=== PATIENT | male | born 1970 | race Caucasian/White ===

== ENCOUNTER 2017-11-22 15:51 | Inpatient (IN) | payer OTHER ==
[~2017-11-22] VITALS: Ht 188 cm; Wt 96.6 kg
--- NOTE | 2017-11-22 16:07 | ED PSYCHIATRIC COMPLAINT ---
History of Present Illness General Chief Complaint: Psychiatric Related Complaint Stated Complaint: BIBA "SI THOUGHTS/DEPRESSION" Source: patient, EMS Exam Limitations: no limitations Vital Signs & Intake/Output Vital Signs & Intake/Output Vital Signs Date Time Temp Pulse Resp B/P B/P Pulse O2 O2 Flow FiO2 Mean Ox Delivery Rate 11/23 0842 98.1 110 20 140/91 99 11/23 0635 98.4 110 16 144/90 95 Room Air Room Air 11/23 0048 76 18 144/72 97 Room Air 11/22 2226 92 138/78 11/22 1901 98.2 85 20 149/96 99 Room Air 11/22 1605 97.8 70 20 160/92 100 Room Air ED Intake and Output 11/23 0000 11/22 1200 Intake Total Output Total Balance Patient 213 lb Weight Weight Reported by Patient Measurement Method Allergies Coded Allergies: NO KNOWN ALLERGIES (03/06/13) Triage Nurses Notes Reviewed? yes HPI: Patient brought in on a police paper after getting into an argument at work and making suicidal comments. Patient states that he was in an argument and he was agitated and he should never gotten agitated but he states he did not make any suicidal comments. Patient denies any homicidal ideations. He denies any hallucinations or delusions. (Jcarlos OSEGUERA,Jeferson Levy) Reconcile Medications No Known Home Medications (Char OSEGUERA,Tigre Pisano) Past History Medical History Any Pertinent Medical History? none Surgical History Surgical History: non-contributory Psychosocial History What is your primary language Kittitian Tobacco Use: Never used ETOH Use: occasional use Illicit Drug Use: denies illicit drug use Family History Hx Contributory? No (Jcarlos OSEGUERA,Jeferson Levy) Review of Systems Review of Systems Constitutional: Reports: no symptoms. EENTM: Reports: no symptoms. Respiratory: Reports: no symptoms. Cardiovascular: Reports: no symptoms. GI: Reports: no symptoms. Genitourinary: Reports: no symptoms. Musculoskeletal: Reports: no symptoms. Skin: Reports: no symptoms. Neurological/Psychological: Reports: no symptoms. Hematologic/Endocrine: Reports: no symptoms. Immunologic/Allergic: Reports: no symptoms. All Other Systems: Reviewed and Negative (Jcarlos OSEGUERA,Jeferson Levy) Physical Exam Physical Exam General Appearance: well developed/nourished, no apparent distress, alert, awake , mild distress Head: atraumatic Eyes: Bilateral: PERRL, EOMI. Ears, Nose, Throat: normal pharynx, normal ENT inspection, hearing grossly normal Neck: normal inspection, supple Respiratory: normal breath sounds, no respiratory distress Cardiovascular: regular rate/rhythm, normal peripheral pulses Gastrointestinal: normal bowel sounds, soft, non-tender Extremities: normal range of motion Neurological/Psychiatric: no motor/sensory deficits, awake, alert, calm, oriented x 3 Appearance/Memory/Insight: appropriate appearance, appropriate insight Behavoir/Eye Contact/Speech: normal speech, good eye contact Thoughts/Hallucinations: normal thought pattern, no apparent hallucination Skin: intact, normal color, warm/dry SAD PERSONS Done? CRISIS CONSULT OBTAINED (Jcarlos OSEGUERA,Jeferson Levy) Progress Differential Diagnosis: drug intoxication, drug overdose, drug withdrawal, electrolyte abnormality Plan of Care: Orders Procedure Date/time Status Regular Diet 11/23 L Active Regular Diet 11/23 B Complete Continuous Observation Monitor 11/23 1900 Active Continuous Observation Monitor 11/23 1500 Active Continuous Observation Monitor 11/23 1100 Active Patient Data - inpatient psych 11/23 1025 Active Admit to inpatient psych 11/23 1025 Active Continuous Observation Monitor 11/23 0700 Active Continuous Observation Monitor 11/23 0114 Active Vital Signs 11/23 UNK Active Nursing Misc 11/23 UNK Active Alternative Nursing Therapy 11/23 UNK Active Activity/Ambulation 11/23 UNK Active Continuous Observation Monitor 11/22 1606 Active URINE DRUGS OF ABUSE 11/22 1606 Complete URINALYSIS 11/22 1606 Complete ETHANOL 11/22 1606 Complete COMPREHENSIVE METABOLIC PANEL 11/22 1606 Complete CBC WITHOUT DIFFERENTIAL 11/22 1606 Complete ED CRISIS PSYCH CONSULT 11/22 1606 Active Current Medications Sig/Daphney Start time Last Medication Dose Stop Time Status Admin Risperidone 0.5 MG BID 11/22 2100 UNVr 11/22 (risperiDONE) 2210 Laboratory Tests 11/22/17 1650: Urine Opiates Screen < 100, Methadone Screen < 40, Barbiturate Screen < 60, Ur Phencyclidine Scrn < 6.00, Amphetamines Screen < 100, U Benzodiazepines Scrn < 85, Urine Cocaine Screen < 50, Urine Cannabis Screen > 80.00 H, Urinalysis LIGHT H, Urine Color YEL, Urine Clarity CLEAR, Urine pH 6.0, Ur Specific [place] 1.010, Urine Protein NEG, Urine Ketones 40 H, Urine Nitrite NEG, Urine Bilirubin NEG, Urine Urobilinogen 0.2, Ur Leukocyte Esterase NEG, Ur Microscopic SEDIMENT EXAMINED, Urine RBC 1-3, Urine WBC 1-3 H, Urine Bacteria MOD H, Urine Hemoglobin TRACE-INTACT H, Urine Glucose NEG 11/22/17 1626: Anion Gap 18 H, Estimated GFR > 60, BUN/Creatinine Ratio 19.0, Glucose 104 H, Calcium 10.2, Total Bilirubin 1.2, AST 26, ALT 18 L, Alkaline Phosphatase 83, Total Protein 8.2, Albumin 4.9, Globulin 3.3, Albumin/Globulin Ratio 1.5, CBC w Diff NO MAN DIFF REQ, RBC 5.86, MCV 84.8, MCH 28.3, MCHC 33.3, RDW 14.6 H, MPV 9.3, Gran % 69.3, Lymphocytes % 19.9 L, Monocytes % 9.8 H, Eosinophils % 0.6, Basophils % 0.4, Absolute Granulocytes 6.7 H, Absolute Lymphocytes 1.9, Absolute Monocytes 0.9 H, Absolute Eosinophils 0.1, Absolute Basophils 0, Serum Alcohol < 10.0 Hand-Off Endorsed To: Tigre Pardo MD Endorsed Time: 1899 Pending: consult (Jcarlos OSEGUERA,Jeferson Levy) Comments: 11/22/2017 8:27:41 PM patient 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 Crisis evaluation pending. 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 (Tigre Pardo MD) Departure Departure Disposition: STILL A PATIENT Condition: Stable Clinical Impression Primary Impression: Depression Referrals: Bakari Lee MD (PCP/Family) Departure Forms: Customer Survey General Discharge Information (Jeferson Garber MD) Departure Prescriptions: Current Visit Scripts No Known Home Medications (Tigre Pardo MD) Psych Admission Note Psychiatric Admission: I have seen and evaluated JACK MRATINEZ. I have also reviewed all the pertinent lab results and diagnostic results. JACK MARTINEZ will be admitted to our inpatient Psychiatric unit for treatment and care. (Real OSEGUERA,Otis)
[2017-11-22 16:38] LABS: ABSOLUTE BASOPHIL COUNT 0 /CUMM (0.0-0.2); ABSOLUTE EOSINOPHIL COUNT 0.1 /CUMM (0.0-0.7); ABSOLUTE GRANULOCYTE CT 6.7 /CUMM (1.4-6.5); ABSOLUTE LYMPH COUNT 1.9 /CUMM (1.2-3.4); ABSOLUTE MONOCYTE COUNT 0.9 /CUMM (0.10-0.60); BASOPHIL % 0.4 % (0.0-2.0); EOSINOPHIL % 0.6 % (0-5); GRANULOCYTE % 69.3 % (42.2-75.2); HEMATOCRIT 49.7 % (42-52); MEAN CORPUSCULAR HGB 28.3 PG (27.0-31.0); MEAN CORPUSCULAR HGB CONC 33.3 G/DL (33.0-37.0); MEAN CORPUSCULAR VOLUME 84.8 FL (80.0-94.0); MEAN PLATELET VOLUME 9.3 FL (7.4-10.4); PLATELET COUNT 227 /CUMM (130-400); RBC DISTRIBUTION WIDTH 14.6 % (11.5-14.5); RED BLOOD CELL CT 5.86 /CUMM (4.70-6.10); WHITE BLOOD CELL COUNT 9.7 /CUMM (4.8-10.8)
--- NOTE | 2017-11-22 20:38 | ED PSYCH CRISIS CONSULTATION ---
Crisis Consult Basic Assessment Date of Consult: 11/22/17 Responsible Person/Accompanied By: came in on a PEER Insurance Authorization: Insurance #1: Insurance name: [employer] OF [place]. Phone number: Policy number: [id number] Group number: [id number] Authorization number: ED Provider: Patient's ED Provider: Jcarlos OSEGUERA,Jeferson Levy Primary Care Physician: Patient's PCP: Bakari Lee MD PCP's Current Psychiatrist: None Chief Complaint: Psychiatric Related Complaint Patient's Quote: I'm messed up, I'm depressed" Present Illness: Pt is a 46 year old male,arriving to ER on a PEER, it states " "he said he was going to kill himself to his boss and EMS personal on scene". Pt appears to be manic, grandiose and barely takes a breath during a conversation. He is rambling and scattered. Pt has limited mental health treatment he states about 6 months ago he talked to "someone one time, but I thought forget it, I'm a man and I will just move on, and deal". 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 When asked if patient had a mental health diagnosis, he states no, not formerly, maybe "I'm manic depressive or schizophrenic you tell me". Pt denies ah/vh, he states the situation at his work, lead him to "rant and rave all day, it's like a radio that won't turn off, its constant and I just want to turn it off for the day, it's too much, if I wasn't sick I wouldn't be here". Pt denies previous si attempts, he states he has made previous threats. He refers to himself as a "loser", who missed the getting " and having kids bullet, but didn;t miss the lonely bullet". Pt is agreeable to taking 0.5mg of risperidal, per Dr. Abreu and to stay the night with intention of being admitted if we have beds tomorrow morning. Pt has some protective factors including caring about his aprents, and wanting to find his purpose in life, and enjoys working. Risk factors inlcude si statements, substance abuse,feeling lost, hopeless and limited mental health treatment. Patient's Address: [address] [place] [address] Other Phone Number: Who Do You Live With? Family Family/Informants Interviewed: Parents think he may not be safe and is under a lot of stress, she supports an inpatient hospitialization at this time, "he needs help" Allergies - Coded Allergies: NO KNOWN ALLERGIES (03/06/13) Laboratory Results: Laboratory Tests 11/22/17 1650: Urine Opiates Screen < 100, Methadone Screen < 40, Barbiturate Screen < 60, Ur Phencyclidine Scrn < 6.00, Amphetamines Screen < 100, U Benzodiazepines Scrn < 85, Urine Cocaine Screen < 50, Urine Cannabis Screen > 80.00 H, Urinalysis LIGHT H, Urine Color YEL, Urine Clarity CLEAR, Urine pH 6.0, Ur Specific [place] 1.010, Urine Protein NEG, Urine Ketones 40 H, Urine Nitrite NEG, Urine Bilirubin NEG, Urine Urobilinogen 0.2, Ur Leukocyte Esterase NEG, Ur Microscopic SEDIMENT EXAMINED, Urine RBC 1-3, Urine WBC 1-3 H, Urine Bacteria MOD H, Urine Hemoglobin TRACE-INTACT H, Urine Glucose NEG 11/22/17 1626: Anion Gap 18 H, Estimated GFR > 60, BUN/Creatinine Ratio 19.0, Glucose 104 H, Calcium 10.2, Total Bilirubin 1.2, AST 26, ALT 18 L, Alkaline Phosphatase 83, Total Protein 8.2, Albumin 4.9, Globulin 3.3, Albumin/Globulin Ratio 1.5, CBC w Diff NO MAN DIFF REQ, RBC 5.86, MCV 84.8, MCH 28.3, MCHC 33.3, RDW 14.6 H, MPV 9.3, Gran % 69.3, Lymphocytes % 19.9 L, Monocytes % 9.8 H, Eosinophils % 0.6, Basophils % 0.4, Absolute Granulocytes 6.7 H, Absolute Lymphocytes 1.9, Absolute Monocytes 0.9 H, Absolute Eosinophils 0.1, Absolute Basophils 0, Serum Alcohol < 10.0 Past History Past Medical History Neurological: NONE EENT: NONE Cardiovascular: NONE Respiratory: NONE Gastrointestinal: NONE Hepatic: NONE Renal: NONE Musculoskeletal: NONE Psychiatric: depression Endocrine: NONE Blood Disorders: NONE Cancer(s): NONE 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 Past Surgical History Surgical History: non-contributory Psychosocial History Strengths/Capabilities: employed, wants to get help Psychiatric Treatment History Psych Treatment Psychiatric Treatment No Diagnosis by History: none Substance Use/Abuse History Drug Use/Abuse Substances Used/Abused No Substance Used/Abused Marijuana First Use adolescent Last Used today How much used/taken varies How often varies For how long years Route of use inhale Substance Abuse Treatment Substance Abuse Treatment Past Substance Abuse [place] No Current Mental Status Mental Status Orientation: Person, Place, Situation Affect: Anxious, Depressed, Inappropriate, Labile, Manic, Variable Speech: Hyper-verbal, Pressured Neuro-vegetative: Appetite Decreased, Concentration Poor, Energy Increased, Hyperactivity, Sleep Disturbance Appearance Appearance- Dress/Hygiene: wnl Behaviors Thought Process: Disorganized, Flight of Ideas Thought Content: Entitled, Grandiose, Paranoid Memory: WNL Insight: Poor SI/HI Risk Assessment Past Suicidal Ideation/Attempts Yes Current Suicidal Ideation/Att Yes Past Homicidal Ideation/Att: No Current Homicidal Ideation/Attempts No Degree of Intent: Thoughts/No Intent Danger To: Self Gravely Disabled: Poor Impulse Control, Poor Judgment Risk Factors: high anxiety/distress, isolate/no social support, poor impulse control, male Lethality Ratin PTSD Checklist PTSD Done? patient declined ED Management Sitter: Yes Restraints: No DSM5/PS Stressors/Medical Prob Diagnosis' (DSM 5, Stressors, Medical): Bipolar Moderate manic episode F31.12 employment, interpersonal Current GAF: 27 Departure Disposition Psych Medical Clearance Date: 11/22/17 Medically Cleared at: 1999 Time Started: 1999 Time Ended: 2099 Psychiatrist Consulted: Darron Abreu MD Date Disposition Established: 11/22/17 Time Disposition Established: 2100 Plan for Disposition - Modality: Inpatient Psychiatry Rationale for Disposition: Pt will begin medication per Dr. Abreu for symtpoms of emiliano, and slotted for either a [facility] bed or at another inpatient unit. Pt is on PEER for making si comments and has limited menta lhealth interventions. Referrals Bakari Lee MD (PCP/Family)
--- NOTE | 2017-11-23 10:27 | IP CRISIS DIAG ASSESS PSYCH ---
Diagnostic Assessment Basic Assessment Insurance Authorization: Insurance #1: Insurance name: [employer] OF [place]. Phone number: Policy number: [id number] Group number: [id number] Authorization number: auth# [id number] review on Sunday11/26/17 Karla [phone] Primary Care Physician: Patient's PCP: Bakari Lee MD PCP's Patient's Quote: I'm messed up, I'm depressed" Present Illness: Pt is a 46 year old male,arriving to ER on a PEER, it states " "he said he was going to kill himself to his boss and EMS personal on scene". Pt appears to be manic, grandiose and barely takes a breath during a conversation. He is rambling and scattered. Pt has limited mental health treatment he states about 6 months ago he talked to "someone one time, but I thought forget it, I'm a man and I will just move on, and deal". 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 When asked if patient had a mental health diagnosis, he states no, not formerly, maybe "I'm manic depressive or schizophrenic you tell me". Pt denies ah/vh, he states the situation at his work, lead him to "rant and rave all day, it's like a radio that won't turn off, its constant and I just want to turn it off for the day, it's too much, if I wasn't sick I wouldn't be here". Pt denies previous si attempts, he states he has made previous threats. He refers to himself as a "loser", who missed the getting " and having kids bullet, but didn't miss the lonely bullet". Pt is agreeable to taking 0.5mg of risperidal, per Dr. Abreu and to stay the night with intention of being admitted if we have beds tomorrow morning. Pt has some protective factors including caring about his parents, and wanting to find his purpose in life, and enjoys working. Risk factors inlcude si statements, substance abuse,feeling lost, hopeless and limited mental health treatment. Patient's Address: [address] [place] [address] Other Phone Number: Who Do You Live With? Family Feel Safe Where You Live? Yes Feel Safe in Your Relationship Yes Marital Status: single Do You Have Children? No Primary Language? Surinamese Language(s) Spoken At Home: Surinamese Family/Informants Interviewed: Parents think he may not be safe and is under a lot of stress, she supports an inpatient hospitialization at this time, "he needs help" Allergies - Coded Allergies: NO KNOWN ALLERGIES (03/06/13) Current Medications - No Known Home Medications Consequences of Psych Med Use: n/a Lab Results: Laboratory Tests 11/22/17 1650: Urine Opiates Screen < 100, Methadone Screen < 40, Barbiturate Screen < 60, Ur Phencyclidine Scrn < 6.00, Amphetamines Screen < 100, U Benzodiazepines Scrn < 85, Urine Cocaine Screen < 50, Urine Cannabis Screen > 80.00 H, Urinalysis LIGHT H, Urine Color YEL, Urine Clarity CLEAR, Urine pH 6.0, Ur Specific [place] 1.010, Urine Protein NEG, Urine Ketones 40 H, Urine Nitrite NEG, Urine Bilirubin NEG, Urine Urobilinogen 0.2, Ur Leukocyte Esterase NEG, Ur Microscopic SEDIMENT EXAMINED, Urine RBC 1-3, Urine WBC 1-3 H, Urine Bacteria MOD H, Urine Hemoglobin TRACE-INTACT H, Urine Glucose NEG 11/22/17 1626: Anion Gap 18 H, Estimated GFR > 60, BUN/Creatinine Ratio 19.0, Glucose 104 H, Calcium 10.2, Total Bilirubin 1.2, AST 26, ALT 18 L, Alkaline Phosphatase 83, Total Protein 8.2, Albumin 4.9, Globulin 3.3, Albumin/Globulin Ratio 1.5, CBC w Diff NO MAN DIFF REQ, RBC 5.86, MCV 84.8, MCH 28.3, MCHC 33.3, RDW 14.6 H, MPV 9.3, Gran % 69.3, Lymphocytes % 19.9 L, Monocytes % 9.8 H, Eosinophils % 0.6, Basophils % 0.4, Absolute Granulocytes 6.7 H, Absolute Lymphocytes 1.9, Absolute Monocytes 0.9 H, Absolute Eosinophils 0.1, Absolute Basophils 0, Serum Alcohol < 10.0 Toxicology Screen Completed? Yes Results: positive Symptoms of Use: "self medicate" Past History Past Medical History Medical History: None/Denies Past Surgical History Surgical History none Abuse/Trauma History Trauma History/Current Trauma: Denies, some concern with loss of friends Legal History Current Legal Status: none Have you ever been arrested? No Psychosocial History Strengths/Capabilities: employed, wants to get help for the first time Physical Limitations (Interventions): n/a Psychiatric Treatment History Psych Treatment Psychiatric Treatment No Diagnosis by History: none Risk Factors: high anxiety/distress, isolate/no social support, poor impulse control, male Substance Use/Abuse History Drug Use/Abuse minimum 12mo Hx Substances Used/Abused No Substance Used/Abused Marijuana First Use adolescent Last Used today How much used/taken varies How often varies For how long years Route of use inhale Substance Abuse Treatment Substance Abuse Treatment Past Substance Abuse [place] No Education History Highest Level of Education: some college Preferred Learning Style: experiential Current Mental Status Mental Status Orientation: Person, Place, Situation Affect: Anxious, Depressed, Inappropriate, Labile, Manic, Variable Speech: Hyper-verbal, Pressured Neuro-vegetative: Appetite Decreased, Concentration Poor, Energy Increased, Hyperactivity, Sleep Disturbance Appearance Appearance- Dress/Hygiene: wnl Behaviors Thought Process: Disorganized, Flight of Ideas Thought Content: Entitled, Grandiose, Paranoid Memory: WNL Insight: Poor SI/HI Risk Assessment - Minimum 6mo History- Past Suicidal Ideation/Attempts Yes Current Suicidal Ideation/Att Yes Past Homicidal Ideation/Att: No Current Homicidal Ideation/Attempts No Degree of Intent: Thoughts/No Intent Danger To: Self Gravely Disabled: Poor Impulse Control, Poor Judgment Risk Factors: high anxiety/distress, isolate/no social support, poor impulse control, male Lethality Ratin Needs/Init [place] Plan/Goals: med evaluation indiviudal, family, group treatment safety protocol inpatient milieu AUDIT-C Questionnaire: AUDIT-C Questionnaire: Response Value ETOH use in the past year Never 0 # drinks typical/day Doesn't Drink 0 6 or > drinks per occasion Never 0 Total 0 DSM5/PS Stressors/Medical Prob Diagnosis' (DSM 5, Stressors, Medical): Bipolar Moderate manic episode F31.12 employment, interpersonal Current GAF: 27
[2017-11-23 19:42] VITALS: BP 139/82
--- NOTE | 2017-11-23 20:18 | History & Physical ---
General Information and HPI MD Statement: I have seen and personally examined JACK MARTINEZ and documented this H&P. The patient is a 46 year old M who presented with a patient stated chief complaint of "messed up, and depressed". Source of Information: patient, family Exam Limitations: unable to give history History of Present Illness: 46-year-old white male by ambulance with "suicidal ideation and depression. The patient was brought in on Mary paper, after getting into an argument at work and making suicidal comments. He denies homicidal ideations patient appears manic eos pressured speech and mood liability from those reasons is admitted for evaluation and treatment Allergies/Medications Allergies: Coded Allergies: NO KNOWN ALLERGIES (03/06/13) Home Med list No Known Home Medications Compliance With Home Meds: UNKNOWN Past History Travel History Traveled to [place] past 21 day No Medical History Neurological: NONE EENT: NONE Cardiovascular: NONE Respiratory: NONE Gastrointestinal: NONE Hepatic: NONE Renal: NONE Musculoskeletal: NONE Psychiatric: depression Endocrine: NONE Blood Disorders: NONE Cancer(s): NONE 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 Home ETOH Use: occasional use Illicit Drug Use: denies illicit drug use Review of Systems Review of Systems Constitutional: Reports: see HPI. Exam & Diagnostic Data Last 24 Hrs of Vital Signs/I&O Vital Signs Date Time Temp Pulse Resp B/P B/P Pulse O2 O2 Flow FiO2 Mean Ox Delivery Rate 11/23 1942 98.2 92 139/82 11/23 1426 97.2 86 18 147/90 98 Room Air 11/23 1122 97.1 91 18 12/92 95 Room Air 11/23 0842 98.1 110 20 140/91 99 11/23 0635 98.4 110 16 144/90 95 Room Air Room Air 11/23 0048 76 18 144/72 97 Room Air 11/22 2226 92 138/78 Physical Exam General Appearance Alert, Oriented X3, Cooperative, No Acute Distress, pacing at times Skin No Rashes, No Breakdown HEENT Atraumatic, PERRLA, EOMI, Mucous Membr. moist/pink Neck Supple, No JVD, No thryomegaly, +2 Carotid Pulse wo Bruit, No LAD Lymphatic Axillary nl, Cervical nl Cardiovascular Regular Rate, No Murmurs Lungs Clear to Auscultation, Normal Air Movement Abdomen Normal Bowel Sounds, Soft, No Tenderness, No Hepatospenomegaly, No Masses Neurological Exam Findings: Normal Gait, Normal Speech, Strength at 5/5 X4 Ext, Normal Tone, Sensation Intact, Cranial Nerves 3-12 NL, Reflexes 2+ Cranial Nerves II through XII: Intact Extremities No Cyanosis, No Edema, Normal Pulses, No Tenderness/Swelling Vascular Normal Pulses, Pulses Symmetrical Last 24 Hrs of Labs/Christ: Laboratory Tests 11/22/17 1650: Urine Opiates Screen < 100, Methadone Screen < 40, Barbiturate Screen < 60, Ur Phencyclidine Scrn < 6.00, Amphetamines Screen < 100, U Benzodiazepines Scrn < 85, Urine Cocaine Screen < 50, Urine Cannabis Screen > 80.00 H, Urinalysis LIGHT H, Urine Color YEL, Urine Clarity CLEAR, Urine pH 6.0, Ur Specific [place] 1.010, Urine Protein NEG, Urine Ketones 40 H, Urine Nitrite NEG, Urine Bilirubin NEG, Urine Urobilinogen 0.2, Ur Leukocyte Esterase NEG, Ur Microscopic SEDIMENT EXAMINED, Urine RBC 1-3, Urine WBC 1-3 H, Urine Bacteria MOD H, Urine Hemoglobin TRACE-INTACT H, Urine Glucose NEG 11/22/17 1626: Anion Gap 18 H, Estimated GFR > 60, BUN/Creatinine Ratio 19.0, Glucose 104 H, Hemoglobin A1c 5.1, Calcium 10.2, Total Bilirubin 1.2, AST 26, ALT 18 L, Alkaline Phosphatase 83, Total Protein 8.2, Albumin 4.9, Globulin 3.3, Albumin/ Globulin Ratio 1.5, Triglycerides 69, Cholesterol 153, LDL Cholesterol, Calc 88, HDL Cholesterol 52, Cholesterol/HDL Ratio 3, TSH &T3 &Free T4 Intrp 1.380, CBC w Diff NO MAN DIFF REQ, RBC 5.86, MCV 84.8, MCH 28.3, MCHC 33.3, RDW 14.6 H, MPV 9.3, Gran % 69.3, Lymphocytes % 19.9 L, Monocytes % 9.8 H, Eosinophils % 0.6, Basophils % 0.4, Absolute Granulocytes 6.7 H, Absolute Lymphocytes 1.9, Absolute Monocytes 0.9 H, Absolute Eosinophils 0.1, Absolute Basophils 0, Serum Alcohol < 10.0 Assessment/Plan As Ranked By This Provider Problem List: 1. Depression Miscellaneous Miscellaneous Documentation Attending Case Discussed With: Darron Abreu MD Primary Care Physician: Bakari Lee MD Patient sees these Specialists Psychiatry Level of Patient Care: SIVA Carlson Consults Needed: Consulting Specialty: Psychiatry Consulting Physician: Dr. Abreu Reason for Consult: bipolar disorder manic
[2017-11-24 07:44] VITALS: BP 136/85
--- NOTE | 2017-11-24 10:26 | CPS PROVIDER INIT ASMT PSYCH ---
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 He feels that the time as come for help as worsening bizzare behaviors. He was tangiental and nonsensical for most of interview but calm and cooperative. Denies SI or HI. Past Psychiatric History Past Diagnosis(es)- if any: no formal Past Precipitating Factors- if any: ?increase mj use - Include inpatient and outpatient treatment Treatment History: pt denied History of Suicide Attempts or Gestures pt denied Substance Abuse History: Tobacco: denied Alcohol: denied Illicits: mj 1/2 -1 oz per week for decades, denied others Allergies: Coded Allergies: NO KNOWN ALLERGIES (03/06/13) Home Med List: see H&P - Include any medical condition(s) that may - impact the patient's recovery/remission Past Medical History: see H&P Past History Medical History Neurological: NONE EENT: NONE Cardiovascular: NONE Respiratory: NONE Gastrointestinal: NONE Hepatic: NONE Renal: NONE Musculoskeletal: NONE Psychiatric: depression Endocrine: NONE Blood Disorders: NONE Cancer(s): 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 - #1 Recognizing dangerous situations. - #2 Coping Skills. - #3 Basic information about quitting. Status of Tobacco Cessation Counseling: Not Applicable Cessation Med Status Not Applicable Alcohol Screening - ETOH screen POS if BAL >=80 or Audit-C>= M4/F3 Audit-C Score from Diag Assess: 0 Blood Alcohol Level: Laboratory Tests 11/22 1626 Toxicology Serum Alcohol (<10 MG/DL) < 10.0 Alcohol Use Screening Results: Neg per Audit C &/or BAL - If ETOH counseling indicated - the following topics are required. - #1 Express concern about the patient's - drinking at unhealthy levels, include informing - of national norms for moderate drinking: - men <= 14 drinks/week, max 4 drinks/occasion - women <= 7 drinks/week, max 3 drinks/occasion - #2 Providing feedback, including linking alcohol to - negative physical effects (liver injury, hypertension) - negative emotional effects (relationship problems and - depression) - negative occupational consequences (reduced work - performance) - #3 Advising the patient to abstain from alcohol or - to drink below national norms for moderate drinking - (as listed above). Status of ETOH Use Counseling: N/A B/C NO ETOH Use Metabolic Screening - Screen if on a Neuroleptic Medication - Metabolic screening should include: - Blood Pressure, BMI, Glucose or Hgb A1c, & a - Lipid profile from within the past 365 days. Metabolic Screening Laboratory Tests 11/22 1650 Toxicology Urine Opiates Screen (>2000 NG/ML) < 100 Methadone Screen (>300 NG/ML) < 40 Barbiturate Screen (>200 NG/ML) < 60 Ur Phencyclidine Scrn (>25 NG/ML) < 6.00 Amphetamines Screen (>1000 NG/ML) < 100 U Benzodiazepines Scrn (>200 NG/ML) < 85 Urine Cocaine Screen (>300 NG/ML) < 50 Urine Cannabis Screen (>50 NG/ML) > 80.00 H Urines Urinalysis LIGHT H Urine Color (YEL,AMB,STR) YEL Urine Clarity (CLEAR) CLEAR Urine pH (5.0 - 8.0) 6.0 Ur Specific [place] (1.001 - 1.035) 1.010 Urine Protein (NEG,<30 MG/DL) NEG Urine Ketones (NEG) 40 H Urine Nitrite (NEG) NEG Urine Bilirubin (NEG) NEG Urine Urobilinogen (0.1 - 1.0 EU/dl) 0.2 Ur Leukocyte Esterase (NEG) NEG Ur Microscopic SEDIMENT EXAMINED Urine RBC (0 - 5 /HPF) 1-3 Urine WBC (0 - 2 /HPF) 1-3 H Urine Bacteria (NEG/NONE) MOD H Urine Hemoglobin (NEG) TRACE-INTACT H Urine Glucose (N MG/DL) NEG 11/22 1626 Chemistry Sodium (137 - 145 mmol/L) 136 L Potassium (3.5 - 5.1 mmol/L) 3.8 Chloride (98 - 107 mmol/L) 99 Carbon Dioxide (22 - 30 mmol/L) 20 L Anion Gap (5 - 16) 18 H BUN (9 - 20 mg/dL) 19 Creatinine (0.7 - 1.2 mg/dL) 1.0 Estimated GFR (>60 ml/min) > 60 BUN/Creatinine Ratio (7 - 25 %) 19.0 Glucose (65 - 99 mg/dL) 104 H Hemoglobin A1c (4.2 - 5.8 %) 5.1 Calcium (8.4 - 10.2 mg/dL) 10.2 Total Bilirubin (0.2 - 1.3 mg/dL) 1.2 AST (17 - 59 U/L) 26 ALT (21 - 72 U/L) 18 L Alkaline Phosphatase (< 127 U/L) 83 Total Protein (6.3 - 8.2 g/dL) 8.2 Albumin (3.5 - 5.0 g/dL) 4.9 Globulin (1.9 - 4.2 gm/dL) 3.3 Albumin/Globulin Ratio (1.1 - 2.2 %) 1.5 Triglycerides (<150 mg/dL) 69 Cholesterol (< 200 MG/DL) 153 LDL Cholesterol, Calc (65 - 129 mg/dL) 88 HDL Cholesterol (40 - 60 mg/dL) 52 Cholesterol/HDL Ratio (0.00 - 4.88 %) 3 TSH &T3 &Free T4 Intrp (0.27 - 4.20 uIU/mL) 1.380 Hematology CBC w Diff NO MAN DIFF REQ WBC (4.8 - 10.8 /CUMM) 9.7 RBC (4.70 - 6.10 /CUMM) 5.86 Hgb (14.0 - 18.0 G/DL) 16.6 Hct (42 - 52 %) 49.7 MCV (80.0 - 94.0 FL) 84.8 MCH (27.0 - 31.0 PG) 28.3 MCHC (33.0 - 37.0 G/DL) 33.3 RDW (11.5 - 14.5 %) 14.6 H Plt Count (130 - 400 /CUMM) 227 MPV (7.4 - 10.4 FL) 9.3 Gran % (42.2 - 75.2 %) 69.3 Lymphocytes % (20.5 - 51.1 %) 19.9 L Monocytes % (1.7 - 9.3 %) 9.8 H Eosinophils % (0 - 5 %) 0.6 Basophils % (0.0 - 2.0 %) 0.4 Absolute Granulocytes (1.4 - 6.5 /CUMM) 6.7 H Absolute Lymphocytes (1.2 - 3.4 /CUMM) 1.9 Absolute Monocytes (0.10 - 0.60 /CUMM) 0.9 H Absolute Eosinophils (0.0 - 0.7 /CUMM) 0.1 Absolute Basophils (0.0 - 0.2 /CUMM) 0 Toxicology Serum Alcohol (<10 MG/DL) < 10.0 Exam and Plan Mental Status Examination Ambulation Status: ambulating freely Appearance: dishelved, dirty Attitude towards examiner: cooperative and overly friendly Psychomotor activity: + agitation Behavior: irratic Quality of speech: nl v/p, pressured speech Affect: irritable, bizzare, labile, not appropriate Mood: "feeling better" Suicidal Ideation: denied Homicidal Ideation: denied Hallucinations: denied Paranoid/Delusional Material: ++ around employment, ER staff, ?parents Difficulties with thought organization: bizzare, tangiential at best Insight: very poor Judgment: very poor Orientation: a/o x4 Cognition: grossly intact Memory Function: grossly intact Estimate of intellectual functioning: average Assets/Strengths Patient Identified Assets/Strengths: able to communicate Impression/Plan Impression and Plan: Pt with no formal psychiatric hx presenting the emiliano and psychotic sx, delusions and increasingly bizzare statement concerning for substance-induced ( cannibus) vs primary bipolar disorder. - Include all active medical diagnosis that require tx DSM 5 Diagnosis(es): Substance induced mood disorder Cannibus use disorder Bipolar disorder, possible underlying - Initial Tx Plan for Active Psych & Medical Conditions Treatment Plan: - d/c risperidone and start zyprexa 5mg daily and 10mg night - given ativan 2mg this morning for agitation and increasingly bizzare behaviors - need collateral as to hx as may very well be untreated bipolar d/o vs substance induced - Factors that would help patient function - in a less restrictive setting. Factors: substance use
[2017-11-24 16:17] VITALS: BP 118/90
--- NOTE | 2017-11-24 19:42 | SOCIAL WORKER SOCIAL HX PSYCH ---
Social History Basic Assessment Insurance Authorization: Insurance #1: Insurance name: [employer] [place]. Phone number: Policy number: [id number] Group number: [id number] Authorization number: auth# [id number] review on Sunday11/26/17 Karla [phone] Curr Source of Income/Entitlements: employment Primary Care Physician: Patient's PCP: Bakari Lee MD PCP's Present Problem: Pt is a 46 year old male,arriving to ER on a PEER, it states " "he said he was going to kill himself to his boss and EMS personal on scene". Pt appears to be manic, grandiose and barely takes a breath during a conversation. He is rambling and scattered. Pt has limited mental health treatment he states about 6 months ago he talked to "someone one time, but I thought forget it, I'm a man and I will just move on, and deal". 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 When asked if patient had a mental health diagnosis, he states no, not formerly, maybe "I'm manic depressive or schizophrenic you tell me". Pt denies ah/vh, he states the situation at his work, lead him to "rant and rave all day, it's like a radio that won't turn off, its constant and I just want to turn it off for the day, it's too much, if I wasn't sick I wouldn't be here". Pt denies previous si attempts, he states he has made previous threats. He refers to himself as a "loser", who missed the getting " and having kids bullet, but didn't miss the lonely bullet". Pt is agreeable to taking 0.5mg of risperidal, per Dr. Abreu and to stay the night with intention of being admitted if we have beds tomorrow morning. Pt has some protective factors including caring about his parents, and wanting to find his purpose in life, and enjoys working. Risk factors inlcude si statements, substance abuse,feeling lost, hopeless and limited mental health treatment. Primary Language? Malagasy Language(s) Spoken At Home: Malagasy Living Situation Other Living Arrangement: relative's/guardian's nanda Residential Care/Treatment Fac no Feel Safe Where You Are Living Yes Feel Safe in Relationships? 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 No Mother's Age (Current/): 71 Relationship w/Mother: good Father's Age (Current/): 71 Relationship w/Father: good Any Sibling(s)? Yes Sibling's Gender(s)/Age(s): male Sibling 1: (24) Relationship w/Sibling(s): good Relationship w/Friends: "All my friends are so I don't really see them" Family Psych/Sub Abuse/Add Hx: drug of choice (alcohol and drugs) Other Comments: Reports that maternal grandfather, maternal uncle and brother use alcohol and drugs Abuse/Trauma History Trauma History/Current Trauma: Denies, some concern with loss of friends Victim or Perpretator? victim (n/a) History of Trauma/Abuse Treatment? No Abuse/Trauma Treatment: none Legal History Legal Guardian/Address/Phone: n/a Current Legal Status: none Pending Court Dates: none Have you ever been arrested No Hx of Juvenile Legal Charges? No Hx of Adult Legal Charges? No Civil Proceedings: none Domestic Relations Court: none Child Protective Serv Involvmnt none Family Therapist n/a Psychosocial History Primary Support System: father, mother Strengths/Capabilities: employed, wants to get help for the first time Weaknesses: drug use, limited insight, few social connections Physical Limitations (Interventions): n/a Last Physical: unknown History of Seizures? Yes (seizures when a baby only) Last Seizure: 45 years ago History of Blackouts? No ADL Limitations: none [place]/Social/Peer Relations Has friends, but says they are all and so he does not really see them Meaningful Activities: Lifts weights Childhood Zoroastrianism: Alevism Current Confucianism Affiliation: no alevism stated Is Spirituality Important to You? no Patient's Ethnicity: pt. said, "" Cultural/Ethnic Issues: none Are There Developmental Issues? No Milestones Achieved: fine motor, gross motor Psychiatric Treatment History Psych Treatment Inpatient Treatment No Outpatient Treatment No Location of Treatment n/a Reason for Treatment n/a Dates of Treatment n/a Response to Treatment n/a Precipitating Factors: n/a Current Crisis Nurse: n/a Treatment of Prior Episodes: n/a Diagnosis: none Psychodynamic Issues: low self-esteem due to bullying in school Risk Factors: high anxiety/distress, isolate/no social support, poor impulse control, male Substance Use/Abuse History Drug Use/Abuse:Min 12 mo hx Substance Used/Abused Marijuana First Use adolescent Last Used today How much used/taken varies How often varies For how long years Route of use inhale Have Had Periods of Sobriety? Yes Explain: Reports has not used cannabis for 3 months at a time Relapse History? Yes Explain: Chronic relapse, limted sober time Have You Ever Attended AA? No Do You Attend AA Currently? No Do You Have a Sponsor? 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 of Jobs in Last 5 Years: 9 Attendance: Normal Performance: Good Comments: none History Have You Been in The ? No If Yes, Explain: n/a Type of Discharge: n/a Date of Discharge: n/a Current Mental Status Mental Status Orientation: Person, Place, Situation Affect: Anxious, Depressed, Inappropriate, Labile, Manic, Variable Speech: Hyper-verbal, Pressured Neuro-vegetative: Appetite Decreased, Concentration Poor, Energy Increased, Hyperactivity, Sleep Disturbance Appearance Appearance- Dress/Hygiene: wnl Behaviors Thought Process: Disorganized, Flight of Ideas Thought Content: Entitled, Grandiose, Paranoid Memory: WNL Insight: Poor SI/HI Risk Assessment Past Suicidal Ideation/Attempts Yes Current Suicidal Ideation/Att Yes Past Homicidal Ideation/Att: No Current Homicidal Ideation/Attempts No Degree of Intent: Thoughts/No Intent Danger To: Self Gravely Disabled: Poor Impulse Control, Poor Judgment Risk Factors: High Anxiety/Distress, Male, Poor impulse control, Substance Abuse Lethality Ratin - Conclusion and Recommendations for treatment - and discharge planning Summary: Pt. is a 46 year old male with no previous psychiatric history. He was sent to ED after making a suicidal statement at work. Pt. presents as anxious and somewhat irritable; his speech is pressured, thought process is racing and tangential. Pt. appeaers to lack insight into his mental illness and kept stating that he "should not be here". He denied current SI/HI. He was cooperative with interview.
[2017-11-24 19:55] VITALS: BP 113/84
[2017-11-25 07:38] VITALS: BP 138/77
--- NOTE | 2017-11-25 10:51 | CP SOUTH PROGRESS NOTE PSYCH ---
Psych (Inpt) Progress Note Progress Note Include the following elements, when applicable: Involvement in the active treatment of the patient with behavioral observations of the patient and the patient's response to the treatment. Review of the ongoing treatment process in the context of the treatment plan. Indication of how multi-disciplinary staff members are carrying out the treatment plan. Plans for future interventions and recommendations for revision of the treatment plan. Liaison with other physicians/providers. Progress Note: Pt notes feeling better since switch from risperidone to zyprexa. He notes thoughts moving slower. Reviewed this provider's concerns re: heavy mj use. Unclear what pt plan is as so tangiental. Denies SI or HI. Current Medications Sig/Daphney Start time Last Medication Dose Route Stop Time Status Admin Acetaminophen 650 MG Q6P PRN 11/23 1030 AC PO Al Hydroxide/Mg 30 ML Q4-6 PRN PRN 11/23 1030 AC Hydroxide PO Benztropine Mesylate 1 MG Q6P PRN 11/23 1030 AC PO Benztropine Mesylate 1 MG Q6P PRN 11/23 1030 AC IM Gabapentin 300 MG Q6P PRN 11/23 1030 AC PO Haloperidol 5 MG Q6P PRN 11/23 1030 AC PO Haloperidol 5 MG Q6P PRN 11/23 1030 AC IM Lorazepam 2 MG Q6P PRN 11/23 1030 AC IM Magnesium Hydroxide 30 ML AT BEDTIME PRN 11/23 1030 AC PO Multivitamins 1 TAB DAILY 11/23 1026 AC 11/25 PO 0757 Olanzapine 10 MG AT BEDTIME 11/24 2100 AC 11/24 PO 2205 Olanzapine 5 MG DAILY 11/24 0900 AC 11/25 PO 0757 Trazodone HCl 50 MG AT BEDTIME NEED.. 11/23 1030 AC PO Laboratory Tests 11/22 1650 Toxicology Urine Opiates Screen (>2000 NG/ML) < 100 Methadone Screen (>300 NG/ML) < 40 Barbiturate Screen (>200 NG/ML) < 60 Ur Phencyclidine Scrn (>25 NG/ML) < 6.00 Amphetamines Screen (>1000 NG/ML) < 100 U Benzodiazepines Scrn (>200 NG/ML) < 85 Urine Cocaine Screen (>300 NG/ML) < 50 Urine Cannabis Screen (>50 NG/ML) > 80.00 H Urines Urinalysis LIGHT H Urine Color (YEL,AMB,STR) YEL Urine Clarity (CLEAR) CLEAR Urine pH (5.0 - 8.0) 6.0 Ur Specific Pimento (1.001 - 1.035) 1.010 Urine Protein (NEG,<30 MG/DL) NEG Urine Ketones (NEG) 40 H Urine Nitrite (NEG) NEG Urine Bilirubin (NEG) NEG Urine Urobilinogen (0.1 - 1.0 EU/dl) 0.2 Ur Leukocyte Esterase (NEG) NEG Ur Microscopic SEDIMENT EXAMINED Urine RBC (0 - 5 /HPF) 1-3 Urine WBC (0 - 2 /HPF) 1-3 H Urine Bacteria (NEG/NONE) MOD H Urine Hemoglobin (NEG) TRACE-INTACT H Urine Glucose (N MG/DL) NEG 11/22 1626 Chemistry Sodium (137 - 145 mmol/L) 136 L Potassium (3.5 - 5.1 mmol/L) 3.8 Chloride (98 - 107 mmol/L) 99 Carbon Dioxide (22 - 30 mmol/L) 20 L Anion Gap (5 - 16) 18 H BUN (9 - 20 mg/dL) 19 Creatinine (0.7 - 1.2 mg/dL) 1.0 Estimated GFR (>60 ml/min) > 60 BUN/Creatinine Ratio (7 - 25 %) 19.0 Glucose (65 - 99 mg/dL) 104 H Hemoglobin A1c (4.2 - 5.8 %) 5.1 Calcium (8.4 - 10.2 mg/dL) 10.2 Total Bilirubin (0.2 - 1.3 mg/dL) 1.2 AST (17 - 59 U/L) 26 ALT (21 - 72 U/L) 18 L Alkaline Phosphatase (< 127 U/L) 83 Total Protein (6.3 - 8.2 g/dL) 8.2 Albumin (3.5 - 5.0 g/dL) 4.9 Globulin (1.9 - 4.2 gm/dL) 3.3 Albumin/Globulin Ratio (1.1 - 2.2 %) 1.5 Triglycerides (<150 mg/dL) 69 Cholesterol (< 200 MG/DL) 153 LDL Cholesterol, Calc (65 - 129 mg/dL) 88 HDL Cholesterol (40 - 60 mg/dL) 52 Cholesterol/HDL Ratio (0.00 - 4.88 %) 3 TSH &T3 &Free T4 Intrp (0.27 - 4.20 uIU/mL) 1.380 Hematology CBC w Diff NO MAN DIFF REQ WBC (4.8 - 10.8 /CUMM) 9.7 RBC (4.70 - 6.10 /CUMM) 5.86 Hgb (14.0 - 18.0 G/DL) 16.6 Hct (42 - 52 %) 49.7 MCV (80.0 - 94.0 FL) 84.8 MCH (27.0 - 31.0 PG) 28.3 MCHC (33.0 - 37.0 G/DL) 33.3 RDW (11.5 - 14.5 %) 14.6 H Plt Count (130 - 400 /CUMM) 227 MPV (7.4 - 10.4 FL) 9.3 Gran % (42.2 - 75.2 %) 69.3 Lymphocytes % (20.5 - 51.1 %) 19.9 L Monocytes % (1.7 - 9.3 %) 9.8 H Eosinophils % (0 - 5 %) 0.6 Basophils % (0.0 - 2.0 %) 0.4 Absolute Granulocytes (1.4 - 6.5 /CUMM) 6.7 H Absolute Lymphocytes (1.2 - 3.4 /CUMM) 1.9 Absolute Monocytes (0.10 - 0.60 /CUMM) 0.9 H Absolute Eosinophils (0.0 - 0.7 /CUMM) 0.1 Absolute Basophils (0.0 - 0.2 /CUMM) 0 Toxicology Serum Alcohol (<10 MG/DL) < 10.0 Vital Signs Date Time Temp Pulse Resp B/P B/P Pulse O2 O2 Flow FiO2 Mean Ox Delivery Rate 11/25 0738 98.3 92 138/77 / 1955 98.9 96 113/84 / 1617 92 118/90 MSE General appearance: good hygiene and grooming; Attitude: cooperative; Eye contact: appropriate; Movement: no psychomotor agitation or slowing; Speech: nl fluency, nl rate/rhythm, nl volume, nl prosody; Mood: "healing and getting better" Affect: irritable, bizzare, flat, appropriate, constricted, non-labile, congruent; Thought process: tangiental at best; Thought content: denied SI or HI, no paranoid ideation; Perception: denied hallucinations- auditory, visual, does not appear to be responding to internal stimuli; I/J: limited A/P:Pt with no formal psychiatric hx presenting the emiliano and psychotic sx, delusions and increasingly bizzare statement concerning for substance-induced ( cannibus) vs primary bipolar disorder. - Unclear why RBCs in urine, repeat UA ordered -Continue current medication regimen -Encourage integration into the milieu
[2017-11-25 11:52] VITALS: BP 131/73
[2017-11-25 15:40] VITALS: BP 117/87
[2017-11-25 20:01] VITALS: BP 136/78
[2017-11-26 07:37] VITALS: BP 141/78
[2017-11-26 12:19] VITALS: BP 132/85
--- NOTE | 2017-11-26 14:00 | SOCIAL WORKER PROG NOTE PSYCH ---
See Addendum Social Work Progress Note Progress Note Corona continues to present with pressured, hyperverbal speech. He talked non- stop for 25 minutes about work related issues, living with his parents, and life goals. He has been working at the [employer] in [place], but was recently demoted. This was part the triggering event that led to his hospitalization. He went 3 days without sleep and ended up having a "breakdown". He reported that his Mother wanted him to come to hospital. He was fighting it initially, but now that he is here he is accepted the fact that he should be here due to his symptoms and acknowledged that people are just trying to help him. He realizes that he has a Bipolar Disorder and that he needs time to stablize. He is open to going to IOP following inpatient hospitalization. Denies that he wanted to kill himself. Reports he has never attempted suicide. Denies any current mental health tx. Said he was seen 1x last year at [facility], but didn't follow through. He talked about smoking marijuana regularly to self-medicate his symptoms. He is spending about 140.00 a week on marijuana. Used to use alcohol in the past, but not currently. He appears open to medications at this time and getting help.
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
[2017-11-26 15:53] VITALS: BP 130/90
[2017-11-26 19:47] VITALS: BP 120/79
[2017-11-27 06:29] LABS: ABSOLUTE BASOPHIL COUNT 0.1 /CUMM (0.0-0.2); ABSOLUTE EOSINOPHIL COUNT 0.1 /CUMM (0.0-0.7); ABSOLUTE GRANULOCYTE CT 7.4 /CUMM (1.4-6.5); ABSOLUTE LYMPH COUNT 2.3 /CUMM (1.2-3.4); ABSOLUTE MONOCYTE COUNT 1.5 /CUMM (0.10-0.60); BASOPHIL % 0.4 % (0.0-2.0); EOSINOPHIL % 0.9 % (0-5); GRANULOCYTE % 65.3 % (42.2-75.2); HEMATOCRIT 45.6 % (42-52); MEAN CORPUSCULAR HGB 29.1 PG (27.0-31.0); MEAN CORPUSCULAR HGB CONC 34.4 G/DL (33.0-37.0); MEAN CORPUSCULAR VOLUME 84.7 FL (80.0-94.0); MEAN PLATELET VOLUME 10.3 FL (7.4-10.4); PLATELET COUNT 188 /CUMM (130-400); RBC DISTRIBUTION WIDTH 14.3 % (11.5-14.5); RED BLOOD CELL CT 5.38 /CUMM (4.70-6.10); WHITE BLOOD CELL COUNT 11.3 /CUMM (4.8-10.8)
[2017-11-27 11:53] VITALS: BP 136/82
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
[2017-11-27 15:50] VITALS: BP 136/91
[2017-11-27 20:19] VITALS: BP 144/88
[2017-11-28 07:40] VITALS: BP 138/89
--- NOTE | 2017-11-28 10:54 | SOCIAL WORKER PROG NOTE PSYCH ---
Social Work Progress Note Progress Note Spoke with Corona this morning about setting up a family meeting. He didn't seem to know if there was one planned for today or not. Mentioned wanting to involve his Dad more than his Mom, because of the stress his Mom is under right now. Called Mr. Paulino about having a family meeting. He reported that there was a meeting scheduled already for today at 11am and that Anika Borrero [facility] had scheduled this. Met with Corona and his Father. Corona stated he is tapered off Zyprexa and will remain on the Depakote. Asked if he has noticed any differences on the medication? He said he doesn't feel like he did when he first arrived, but can' t really tell much of a difference yet. He appears slightly ambivalent about being on medication, but will say he will do what is being recommended. Father is also concerned about him remaining on meds and stopping the marijuana use. Father shared that he does not feel Corona is back to his usually self at this point. He feels he remains elevated and pressured. Corona admitted to feeling a little "manic" today. Dad reported that there is no safety concerns at home. He shared that Corona will "rant" about work and get worked up, but has never hurt himself or anyone else and does not get aggressive. Asked Dad if there are any family members with Bipolar Disorder in the family? Dad is not aware of anyone on either side of the family. Discussed the plan of him going to [facility]. He also seems a little ambivalent about following up, although states he will go. He seems to be feeling a little judged and ashamed of his admission and how people are perceiving him. Dad is very supportive of the idea of him going to [facility] and let me know after the meeting, even if he has a co-pay Dad may help pay for him. He wants to see Corona get help. Overall Corona appears anxious about d/c and appears to be in agreement with things probably superficially to get discharged.
--- NOTE | 2017-11-28 11:07 | SOCIAL WORKER PROG NOTE PSYCH ---
Social Work Progress Note Progress Note Transfer faxed to [facility] on 11/28/17 at 11:04pm. In chart.
--- NOTE | 2017-11-28 11:37 | CP SOUTH PROGRESS NOTE PSYCH ---
Psych (Inpt) Progress Note Progress Note Include the following elements, when applicable: Involvement in the active treatment of the patient with behavioral observations of the patient and the patient's response to the treatment. Review of the ongoing treatment process in the context of the treatment plan. Indication of how multi-disciplinary staff members are carrying out the treatment plan. Plans for future interventions and recommendations for revision of the treatment plan. Liaison with other physicians/providers. Progress Note: Case and treatment plan discussed in team meeting. Staff reports that the patient is denying suicidal ideation. Loud and hyperverbal. Tangential. Worried about today's family meeting with father. Patient seen at 10:12 AM. He was sitting in the lounge but got up and met with me in office. Reports feeling good. States everything is great. Reports he will have family meeting with his father this morning. He seems mildly agitated about it. Reports mood is fine, a little nervous about family meeting, other than that, reports he is good. Rates anxiety about 1-2/10 and sad mood 0/10. Denies feeling hopeless, helpless or worthless. Does feel guilty. Denies active and passive suicidal ideation. Denies homicidal ideation. Denies auditory and visual hallucinations and paranoid ideation. Sleep: "it's so good, it's scary." Appetite: good, reports concern about potential for weight gain. Energy: "great." Tolearting medications. I briefly joined family meeting with patient, father and social service director, Valerie. Patient's and father's questions were addressed. IMPRESSION: Slow porgress. Continue present treatment plan. Await tomorrow's Depakote level. Anticipate likely discharge on Sunday to IOP intake then to home and family.
[2017-11-28 12:10] VITALS: BP 117/86
[2017-11-28 16:29] VITALS: BP 132/89
[2017-11-28 19:54] VITALS: BP 123/88
[2017-11-29 07:51] VITALS: BP 128/89
[2017-11-29 11:58] VITALS: BP 130/96
--- NOTE | 2017-11-29 11:59 | SOCIAL WORKER PROG NOTE PSYCH ---
Social Work Progress Note Progress Note Dr. Abreu and I met with Corona together this morning. He continues to present as a bit "amped up." He acknowledged feeling that way and said that he feels his mood was thrown off yesterday due to the stress of the family meeting with his Dad. He talked about how he and Dad need to "air their dirty laundry" but not now. He didn't say initially what the problems were between Dad and him, but later stated that he believes his Father had an affair and he remembers things about it. Not sure how this is really impacting him now, but he seems to be looking for reasons as to why he isn't doing well. He lacks insight into what is currently going on with him and stated he doesn't think he "ever needed to be here." He mentioned not sleeping last night, due to his roommate snoring and not getting his Depakote this morning because they held it due to lab work today. He feels these factors are also contributing to his agitation and behavior this morning. He is still quite hyperverbal and tangential. I let him know that his Father doesn't feel he is really back to himself at this point. He got upset hearing that, basically blaming his Father then for sharing that information with us. He feels his Father has never nurtured or believed in him and had spent alot of time on "molding" his Brother. It sounds like the Brother has an issue with drugs though. He is advocating to leave to go to his appt. at [facility] tomorrow. He was told that may not happen. He was quite upset hearing that and said he may need to take "legal action." We let him know he could submit a paper to terminate his voluntary status.
--- NOTE | 2017-11-29 14:11 | CP SOUTH PROGRESS NOTE PSYCH ---
Psych (Inpt) Progress Note Progress Note Include the following elements, when applicable: Involvement in the active treatment of the patient with behavioral observations of the patient and the patient's response to the treatment. Review of the ongoing treatment process in the context of the treatment plan. Indication of how multi-disciplinary staff members are carrying out the treatment plan. Plans for future interventions and recommendations for revision of the treatment plan. Liaison with other physicians/providers. Progress Note: Case and treatment plan discussed in team meeting. Staff reports that the patient is denying suicidal ideation. Described as hyperverbal. Lab Amylase 66 U/L 11/29/1748 Valproic Acid 54.8 ug/mL 11/29/17647 Patient seen at 11:29 AM was social media developer, Valerie. Patient was resting in bed but got up and met with us in office. Patient reports he has been easily excitable. Feels he regressed a little yesterday. Found it stressful seeing his father. States that he did not want to air their dirty laundry. Patient claims he was not the son his father should have had. Thinking is mildly disorganized. States mood is "a little wiggy" because of family meeting yesterday. Affect is mildly animated. Feels that his father does not believe him. States he had poor sleep because his roommate was snoring. Rates sad mood 0/10 and anxiety 4- 5/10. Denies feeling hopeless, helpless or worthless. Feels guilty toward his parents. Denies active and passive suicidal ideation. Denies homicidal ideation. Denies auditory and visual hallucinations and paranoid ideation. Appetite: claims he is eating like a bird, concerned about weight gain. Describes energy as better than average. Patient has poor insight; does not think he belonged here in the first place. Tolerating medications. Stated that if he is not discharged by 1:15 pm tomorrow, he will take legal action. We advised him he can file a termination of voluntary form. IMPRESSION: Slow progress. Continue present treatment plan. Remains hypomanic to manic. We will now increase Depakote dose to 500 mg b.i.d. If there is no improvement by tomorrow, we will likely increased Zyprexa dose back to 10 mg a day. Continues to require inpatient level of care.
[2017-11-29 15:54] VITALS: BP 131/86
[2017-11-29 20:16] VITALS: BP 131/89
[2017-11-30 07:36] VITALS: BP 111/79
[2017-11-30 12:05] VITALS: BP 126/76
--- NOTE | 2017-11-30 13:55 | CP SOUTH PROGRESS NOTE PSYCH ---
Psych (Inpt) Progress Note Progress Note Include the following elements, when applicable: Involvement in the active treatment of the patient with behavioral observations of the patient and the patient's response to the treatment. Review of the ongoing treatment process in the context of the treatment plan. Indication of how multi-disciplinary staff members are carrying out the treatment plan. Plans for future interventions and recommendations for revision of the treatment plan. Liaison with other physicians/providers. Progress Note: Case and treatment plan discussed in team meeting. Staff reports that the patient is denying suicidal ideation. Described as hypomanic and hyperverbal. Patient seen at 10:13 AM was social security benefits interviewer, Valerie, and with medical student. Patient was in group prior to meeting with us in office. Patient is apologetic, stating he was a little anxious yesterday. States that he knows to stop marijuana and to remain on Depakote. Speech remains pressured. Affect is less irritable but remains somewhat animated. Agrees to increase Zyprexa back to 10 mg daily. Engages in a lot of negative self-talk. Stated "I've been nothing but a failure." Reports mood now is better than it has been. Rates sad mood and anxiety both 0/10. Denies feeling hopeless, helpless or worthless. Reports guilt has reduced from 10/10 to 5/10. Denies active and passive suicidal ideation. Denies homicidal ideation. Denies auditory and visual hallucinations and paranoid ideation. Reports his sleep last night was fantastic. Reports he has been overeating out of anger and indicates he will be eating healthier. Describes energy as fantastic; he wishes he had weights here so that he could do weight-lifting. IMPRESSION: Slow progress. Continue present treatment plan. We will not discharge the patient today. He has not been fully stabilized. Monitor response to Depakote 1000 mg total daily dose and Zyprexa 10 mg total daily dose. We will check a repeat Depakote level on Sunday. Anticipate likely discharge on Sunday with referral to [facility] and return to home and family.
[2017-11-30 16:34] VITALS: BP 140/82
--- NOTE | 2017-11-30 16:40 | SOCIAL WORKER PROG NOTE PSYCH ---
Social Work Progress Note Progress Note Dr. Abreu and I met with Corona this morning. He apologized for "offending anyone" yesterday and "threatening" legal action. He seemed a little less agitated today. He said he realizes why people want him to be here and feels he needs to be here. He was open to hearing that he needed to stay if that was the decision from the team. We told him that we would like him to stay through the weekend. He is still quite hyperverbal with tangential thoughts. Exhibits alot of negative self talk. Tried to encourage less of that and to be observant of that. He continues to deny SI/HI, deny AH/VH. Feelings of guilt have lessened. He slept well last night. Asked if he had spoken with his Father? He said he has not. Doesn't seem to want to burden his Father. Dr. Abreu is increasing his Zyprexa back to 10mg. Let him know that he will not d/c today and we will look at Sunday for d/c. Rescheduled his IOP appt. for Sunday at 11:30am. Spoke with Corona's Father and let him know what the plan was.
[2017-11-30 19:45] VITALS: BP 119/77
[2017-12-01 07:55] VITALS: BP 134/87
--- NOTE | 2017-12-01 12:10 | CP SOUTH PROGRESS NOTE PSYCH ---
Psych (Inpt) Progress Note Progress Note Include the following elements, when applicable: Involvement in the active treatment of the patient with behavioral observations of the patient and the patient's response to the treatment. Review of the ongoing treatment process in the context of the treatment plan. Indication of how multi-disciplinary staff members are carrying out the treatment plan. Plans for future interventions and recommendations for revision of the treatment plan. Liaison with other physicians/providers. Progress Note: Pt notes that he is much better. SPoke at length about a number of topics. Denies SI or HI. Current Medications Sig/Daphney Start time Last Medication Dose Route Stop Time Status Admin Acetaminophen 650 MG Q6P PRN 11/23 1030 AC 11/26 PO 1733 Al Hydroxide/Mg 30 ML Q4-6 PRN PRN 11/23 1030 AC Hydroxide PO Benztropine Mesylate 1 MG Q6P PRN 11/23 1030 AC PO Benztropine Mesylate 1 MG Q6P PRN 11/23 1030 AC IM Divalproex Sodium 500 MG 0811/29 1145 AC 12/01 PO 0836 Divalproex Sodium 500 MG DAILY@11/26 2000 AC 11/30 PO 2153 Gabapentin 300 MG Q6P PRN 11/23 1030 AC PO Haloperidol 5 MG Q6P PRN 11/23 1030 AC PO Haloperidol 5 MG Q6P PRN 11/23 1030 AC IM Magnesium Hydroxide 30 ML AT BEDTIME PRN 11/23 1030 AC PO Multivitamins 1 TAB DAILY 11/23 1026 AC 12/01 PO 0836 Olanzapine 10 MG AT BEDTIME 12/01 2100 AC PO Olanzapine 5 MG AT BEDTIME 11/30 2100 DC 11/30 PO 11/30 2101 2151 Trazodone HCl 50 MG AT BEDTIME NEED.. 11/23 1030 AC PO Laboratory Tests 11/29 0648 Chemistry Amylase (30 - 110 U/L) 66 Toxicology Valproic Acid (50 - 120 ug/mL) 54.8 Vital Signs Date Time Temp Pulse Resp B/P B/P Pulse O2 O2 Flow FiO2 Mean Ox Delivery Rate 12/015 97.0 96 134/87 11/30 1945 98.3 93 119/77 08 1634 94 140/82 MSE General appearance: good hygiene and grooming; Attitude: cooperative; Eye contact: appropriate; Movement: no psychomotor agitation or slowing; Speech: nl fluency, increased rate/rhythm, nl volume, nl prosody, pressured; Mood: "much better" Affect: irritable, flat, appropriate, constricted, non-labile, congruent; Thought process: tangietal at best; Thought content: denied SI or HI, no paranoid ideation; Perception: denied hallucinations- auditory, visual, does not appear to be responding to internal stimuli; I/J: limited A/P: Pt with likely underlying bipolar disorder presenting with continued emiliano. -Continue current medication regimen, per notes, plan to rely on VPA for mood stablity. -Encourage integration into the milieu
[2017-12-01 12:13] VITALS: BP 144/95
[2017-12-01 15:54] VITALS: BP 139/83
[2017-12-01 20:31] VITALS: BP 138/92
[2017-12-02 08:01] VITALS: BP 141/88
[2017-12-02 12:06] VITALS: BP 138/83
--- NOTE | 2017-12-02 15:05 | CP SOUTH PROGRESS NOTE PSYCH ---
Psych (Inpt) Progress Note Progress Note Include the following elements, when applicable: Involvement in the active treatment of the patient with behavioral observations of the patient and the patient's response to the treatment. Review of the ongoing treatment process in the context of the treatment plan. Indication of how multi-disciplinary staff members are carrying out the treatment plan. Plans for future interventions and recommendations for revision of the treatment plan. Liaison with other physicians/providers. Progress Note: Pt noted to be in close contact with female peer overnight. Redirected and rules restated. Pt notes today that wants to be in a relationship with peer. He stated that relationship is planned to continue outside of hospital but feels that it may be "doomed." Redirected and encouraged pt to not fraternize with peers. Denies SI or HI. Current Medications Sig/Daphney Start time Last Medication Dose Route Stop Time Status Admin Acetaminophen 650 MG Q6P PRN 11/23 1030 AC 11/26 PO 1733 Al Hydroxide/Mg 30 ML Q4-6 PRN PRN 11/23 1030 AC Hydroxide PO Benztropine Mesylate 1 MG Q6P PRN 11/23 1030 AC PO Benztropine Mesylate 1 MG Q6P PRN 11/23 1030 AC IM Divalproex Sodium 500 MG 0811/29 1145 AC 12/02 PO 0812 Divalproex Sodium 500 MG DAILY@11/26 2000 AC 12/01 PO 1956 Gabapentin 300 MG Q6P PRN 11/23 1030 AC PO Haloperidol 5 MG Q6P PRN 11/23 1030 AC PO Haloperidol 5 MG Q6P PRN 11/23 1030 AC IM Magnesium Hydroxide 30 ML AT BEDTIME PRN 11/23 1030 AC PO Multivitamins 1 TAB DAILY 11/23 1026 AC 12/02 PO 0812 Olanzapine 10 MG AT BEDTIME 12/01 2100 AC 12/01 PO 2324 Trazodone HCl 50 MG AT BEDTIME NEED.. 11/23 1030 AC PO Vital Signs Date Time Temp Pulse Resp B/P B/P Pulse O2 O2 Flow FiO2 Mean Ox Delivery Rate 12/02 1206 87 138/83 12/02 0801 97.3 70 141/88 12/01 2031 98.2 88 138/92 12/01 1554 94 139/83 MSE General appearance: good hygiene and grooming; Attitude: cooperative; Eye contact: appropriate; Movement: no psychomotor agitation or slowing; Speech: nl fluency, increased rate/rhythm, nl volume, nl prosody, pressured; Mood: "great" Affect: irritable, flat, appropriate, constricted, non-labile, congruent; Thought process: tangiental at best; Thought content: denied SI or HI, no paranoid ideation; Perception: denied hallucinations- auditory, visual, does not appear to be responding to internal stimuli; I/J: limited A/P: Pt with likely underlying bipolar disorder presenting with continued emiliano. -Continue current medication regimen, per notes, plan to rely on VPA for mood stablity. - Pt likely needs additional agent as still elevated mood -Encourage integration into the milieu
[2017-12-02 15:39] VITALS: BP 145/95
[2017-12-02 20:00] VITALS: BP 129/92
[2017-12-03 07:42] VITALS: BP 137/88
--- NOTE | 2017-12-03 09:49 | Patient Discharge Instructions ---
Psych Discharge Inst General Discharge Information Reason for Admission: Worsening psychosis and emiliano. Psy Discharge Primary Diag+ Bipolar d/o, manic Psy Discharge Secondary Diag+ Cannabis use disorder Summary Tests/Major Procedures Lab ALT 18 U/L L 11/22/17 1626 AST 26 U/L 11/22/17 1626 Amylase 66 U/L 11/29/17 0648 Anion Gap 18 H 11/22/17 1626 BUN 19 mg/dL 11/22/17 1626 Calcium 10.2 mg/dL 11/22/17 1626 Carbon Dioxide 20 mmol/L L 11/22/17 1626 Chloride 99 mmol/L 11/22/17 1626 Cholesterol 153 MG/DL 11/22/17 1626 Cholesterol/HDL Ratio 3 % 11/22/17 1626 Creatinine 1.0 mg/dL 11/22/17 1626 Estimated GFR > 60 ml/min 11/22/17 1626 Glucose 104 mg/dL H 11/22/17 1626 HDL Cholesterol 52 mg/dL 11/22/17 1626 Hemoglobin A1c 5.1 % 11/22/17 1626 LDL Cholesterol, Calc 88 mg/dL 11/22/17 1626 Potassium 3.8 mmol/L 11/22/17 1626 Sodium 136 mmol/L L 11/22/17 1626 TSH &T3 &Free T4 Intrp 1.380 uIU/mL 11/22/17 1626 Triglycerides 69 mg/dL 11/22/17 1626 Absolute Granulocytes 7.4 /CUMM H 11/27/17 0600 Absolute Monocytes 1.5 /CUMM H 11/27/17 0600 Hct 45.6 % 11/27/17 0600 Hgb 15.7 G/DL 11/27/17 0600 Lymphocytes % 20.4 % L 11/27/17 0600 Monocytes % 13.0 % H 11/27/17 0600 Plt Count 188 /CUMM 11/27/17 0600 WBC 11.3 /CUMM H 11/27/17 0600 Urine Cannabis Screen > 80.00 NG/ML H 11/22/17 1650 Valproic Acid 54.8 ug/mL 11/29/17 0648 Valproic Acid 54.5 ug/mL 12/03/17 0600 Ur Epithelial Cells RARE 11/25/17 1357 Urinalysis LIGHT H 11/22/17 1650 Urine Bacteria RARE H 11/25/17 1357 Urine Hemoglobin TRACE-INTACT H 11/25/17 1357 Urine Mucus MOD H 11/25/17 1357 Urine RBC RARE /HPF 11/25/17 1357 Urine WBC 1-3 /HPF H 11/22/17 1650 Studies Pending at DC: None. Patient Instructions Contact Information Your Psychiatrist on [facility] was Darron Abreu MD * If you are experiencing an emergency related to this hospitalization, please call [phone] to contact the treating psychiatrist or the psychiatrist-on- call. * To Request a copy of your medical records, please contact the Medical Records Department at [phone]. * To request results of studies pending at the time of discharge, please call [phone]. * Continue your Medications until directed to stop by your Healthcare provider. General Medication Information Please continue to take your new medications and your continued home medications , unless otherwise indicated on your discharge medication list, or unless directed by your MD or FRAME BENDER to stop them. Special Instructions Diet Regular Activity Normal Other Inst/Recommendations Stay away from marijuana. Take medications and have VPA level checked - Tobacco Use Treatment Offered Post DC Medications Offered: Not Applicable Post DC Tobacco Treatment Plan: Not Applicable - EtOH/Drug Use D/O Treatment Offered Post DC Medications Offered: Med Not Indicated for D/O Post DC EtOH/SubAbuse [place] Plan: [facility] SubAbuse/Dual IOP Program Appt Date: 12/03/17 Program Appt Time: 1130 Metabolic Screening () Not Applicable, patient not on a neuroleptic. OR () Patient on a neuroleptic(s) . Enter below results for Hemoglobin A1C, and lipid panel if obtained during the last 365 days. BMI: 27.300 Blood Pressure: 137/88 Laboratory Results From [facility] (If applicable): [x] Lab Cholesterol 153 MG/DL 11/22/17 1626 Cholesterol/HDL Ratio 3 % 11/22/17 1626 HDL Cholesterol 52 mg/dL 11/22/17 1626 Hemoglobin A1c 5.1 % 11/22/17 1626 LDL Cholesterol, Calc 88 mg/dL 11/22/17 1626 Triglycerides 69 mg/dL 11/22/17 1626 Advance Directives Does the Patient have Medical Advance Directives No/Refused further info Does Pt have Psychiatric Advance Directives? No/Refused further info Does Patient have a Designated Surrogate Decision Maker: No Information About Psychiatric Advance Directives Provided? Refused Discharge Plan Post Hospital Treatment Plan: Returning to home and family.
[2017-12-03] MEDS ORDERED: DIVALPROEX SOD250 M2 PO (10:02)
[2017-12-03] MEDS ORDERED: ONE DAILY MULT1 EAC2 PO (10:02)
[2017-12-03] MEDS ORDERED: OLANZAPINE10 M1 PO (10:02)
--- NOTE | 2017-12-03 10:07 | SOCIAL WORKER PROG NOTE PSYCH ---
Social Work Progress Note Progress Note Corona was not in planning meeting this morning. He was sitting in the lounge. I met with his during that time and asked why he was not in group? He reported feeling done with that group and was focused on leaving today. He shared that he was concerned about a past peer that had discharged from the unit and no one has been able to get a hold of. He stated he is hoping she isn't . He seemed overly concerned that something bad had happened and feels it's his mission to seek her out and make sure she is alive and okay when he leaves. I tried to let him know that it may be possible that she is adjusting to being home and just needs to set limits or she is taking some space for herself and that's why she is not answering calls. He said he feels that his purpose is to help others. He also shared that he got in a bit of trouble over the weekend, getting too "handsy" with another female patient. He went on to say that he and this other female are the best looking people on the unit and so it made sense that they would ultimately be together and seek eachother out. He continues to appear a little grandiose and hyperverbal. I told him that I didn't see much difference in his presentation since Sunday, but there was no reason to continue to hold him on an inpatient unit, when he could follow up in [facility]. I shared that there is a financial cost to him attending [facility], which may be about 119.00 a day. I let him know that he can get financial help through [facility]'s business office. He also said he may apply for [employer] if he no longer has a job. Reports that he has been sleeping well and that his mood is good. Focused on the fact that he rambles alot when asked to talk about himself. Encouraged him to focus on his wellness and recovery. Corona will plan to walk home after his intake at [facility]. Called Mr. Paulino (Corona's Father) and let him know Corona will d/c today at 11: 30 to [facility] intake. I gave him some financial information about possibly co-pays and the number to the business office for financial assistance.
--- NOTE | 2017-12-03 13:08 | SOCIAL WORKER PROG NOTE PSYCH ---
Social Work Progress Note Faxed Referral(s) Referred To: [facility] Transition of Care Documents sent: Health Summary Faxed to: [facility] Fax #: [phone] Faxed by: Valerie Johnston Date faxed: 12/03/17 Time Faxed: [phone]
--- NOTE | 2017-12-03 16:18 | CP SOUTH PROGRESS NOTE PSYCH ---
Psych (Inpt) Progress Note Progress Note Include the following elements, when applicable: Involvement in the active treatment of the patient with behavioral observations of the patient and the patient's response to the treatment. Review of the ongoing treatment process in the context of the treatment plan. Indication of how multi-disciplinary staff members are carrying out the treatment plan. Plans for future interventions and recommendations for revision of the treatment plan. Liaison with other physicians/providers. Progress Note: Dr. Arechiga's notes reviewed. Case and treatment plan discussed in team meeting. Staff reports that the patient is denying suicidal ideation. Hyperverbal. Engaged in some mutual kissing with a female peer. Has IOP intake at 11:30 AM. Lab Valproic Acid 54.8 ug/mL 11/29/17 0648 Valproic Acid 54.5 ug/mL 12/03/17 0600 Patient seen at 9:53 AM. Speech is measured. Reports appreciation for his care here. Affect is calm and euthymic. Reports mood is excellent. Has no complaints. Rates sad mood about 2/10. Rates anxiety 0/10. Denies feeling hopeless, helpless or worthless. Rates guilt 2/10. Denies active and passive suicidal ideation. Denies homicidal ideation. Denies auditory and visual hallucinations and paranoid ideation. Reports sleep was great. Describes appetite as he is dieting. Reports energy is fantastic. Tolerating medications well, without complaint. Feels ready and safe for discharge. IMPRESSION: Condition improved. Okay for discharge today to IOP intake then to home. We were informed after patient was discharged that he presented to the IOP for only 2-3 minutes and indicated he would not go to [facility] but rather would go to [facility] [place]. -[facility] social security assessor, Valerie, contacted the patient's father and informed father of this. Father will try to persuade the patient to go to [facility]'s [facility].
--- NOTE | 2017-12-03 16:23 | DISCHARGE SUMMARY REPORT-PSYCH ---
Visit Information Visit Dates/Diagnosis' Admission Date: 11/23/17 Discharge Date: 12/03/17 Reason for Admission: Worsening psychosis and emiliano. Psy Discharge Primary Diag: Bipolar d/o, manic Psy Discharge Secondary Diag: Cannabis use disorder Hospital Course Significant Lab Findings: Lab ALT 18 U/L L 11/22/17 1626 AST 26 U/L 11/22/17 1626 Amylase 66 U/L 11/29/17 0648 Anion Gap 18 H 11/22/17 1626 BUN 19 mg/dL 11/22/17 1626 Calcium 10.2 mg/dL 11/22/17 1626 Carbon Dioxide 20 mmol/L L 11/22/17 1626 Chloride 99 mmol/L 11/22/17 1626 Cholesterol 153 MG/DL 11/22/17 1626 Cholesterol/HDL Ratio 3 % 11/22/17 1626 Creatinine 1.0 mg/dL 11/22/17 1626 Estimated GFR > 60 ml/min 11/22/17 1626 Glucose 104 mg/dL H 11/22/17 1626 HDL Cholesterol 52 mg/dL 11/22/17 1626 Hemoglobin A1c 5.1 % 11/22/17 1626 LDL Cholesterol, Calc 88 mg/dL 11/22/17 1626 Potassium 3.8 mmol/L 11/22/17 1626 Sodium 136 mmol/L L 11/22/17 1626 TSH &T3 &Free T4 Intrp 1.380 uIU/mL 11/22/17 1626 Triglycerides 69 mg/dL 11/22/17 1626 Absolute Granulocytes 7.4 /CUMM H 11/27/17 0600 Absolute Monocytes 1.5 /CUMM H 11/27/17 0600 Hct 45.6 % 11/27/17 0600 Hgb 15.7 G/DL 11/27/17 0600 Lymphocytes % 20.4 % L 11/27/17 0600 Monocytes % 13.0 % H 11/27/17 0600 Plt Count 188 /CUMM 11/27/17 0600 WBC 11.3 /CUMM H 11/27/17 0600 Urine Cannabis Screen > 80.00 NG/ML H 11/22/17 1650 Valproic Acid 54.8 ug/mL 11/29/17 0648 Valproic Acid 54.5 ug/mL 12/03/17 0600 Ur Epithelial Cells RARE 11/25/17 1357 Urinalysis LIGHT H 11/22/17 1650 Urine Bacteria RARE H 11/25/17 1357 Urine Hemoglobin TRACE-INTACT H 11/25/17 1357 Urine Mucus MOD H 11/25/17 1357 Urine RBC RARE /HPF 11/25/17 1357 Urine WBC 1-3 /HPF H 11/22/17 1650 Course Complications: None. Consultations: The patient was seen by Dr. Lee for admission H&P. Please refer to Dr. Lee's note for additional information. Allergies: Coded Allergies: NO KNOWN ALLERGIES (03/06/13) Hospital Course/TX Response: The patient was monitored on the unit for safety, psychosis and mood disorder. He participated in multi-modal treatments on the unit. He did not demonstrate an adequate response to Risperdal, so neuroleptic was changed to Zyprexa, on which the patient demonstrated some improvement. The patient was treated with Depakote too, and Zyprexa doses was tapered down, but ultimately was increased back to 10 mg qhs. The patient has been hyperverbal although this has improved a bit. Thinking has become more organized. Progress note from date of discharge, 12/03/17: "Dr. Arechiga's notes reviewed. Case and treatment plan discussed in team meeting. Staff reports that the patient is denying suicidal ideation. Hyperverbal. Engaged in some mutual kissing with a female peer. Has IOP intake at 11:30 AM. Lab Valproic Acid 54.8 ug/mL 11/29/17 0648 Valproic Acid 54.5 ug/mL 12/03/17 0600 Patient seen at 9:53 AM. Speech is measured. Reports appreciation for his care here. Affect is calm and euthymic. Reports mood is excellent. Has no complaints. Rates sad mood about 2/10. Rates anxiety 0/10. Denies feeling hopeless, helpless or worthless. Rates guilt 2/10. Denies active and passive suicidal ideation. Denies homicidal ideation. Denies auditory and visual hallucinations and paranoid ideation. Reports sleep was great. Describes appetite as he is dieting. Reports energy is fantastic. Tolerating medications well, without complaint. Feels ready and safe for discharge. IMPRESSION: Condition improved. Okay for discharge today to IOP intake then to home. We were informed after patient was discharged that he presented to the [facility] for only 2-3 minutes and indicated he would not go to IOP but rather would go to [facility]. [facility] social science manager, Valerie, contacted the patient's father and informed father of this. Father will try to persuade the patient to go to [facility]'s IOP." Discharge HBIPS - Tobacco Use Treatment Offered Post DC Medications Offered: Not Applicable Post DC Tobacco Treatment Plan: Not Applicable - EtOH/Drug Use D/O Treatment Offered Post DC Medications Offered: Med Not Indicated for D/O Post DC EtOH/SubAbuse TX Plan: [facility] SubAbuse/Dual IOP Program Appt Date: 12/03/17 Program Appt Time: 113 Metabolic Screening - Screen if on a Neuroleptic Medication - Metabolic screening should include: - Blood Pressure, BMI, Glucose or Hgb A1c, & a - Lipid profile from within the past 365 days. Metabolic Screening () Not Applicable, patient not on a neuroleptic. OR () Patient on a neuroleptic(s) . Enter below results for Hemoglobin A1C, and lipid panel if obtained during the last 365 days. BMI: 27.300 Blood Pressure: 137/88 Laboratory Results From [facility] EHR (If applicable): [x] Lab Cholesterol 153 MG/DL 11/22/17 1626 Cholesterol/HDL Ratio 3 % 11/22/17 1626 HDL Cholesterol 52 mg/dL 11/22/17 1626 Hemoglobin A1c 5.1 % 11/22/17 1626 LDL Cholesterol, Calc 88 mg/dL 11/22/17 1626 Triglycerides 69 mg/dL 11/22/17 1626 Discharge Instructions General Discharge Information Multiple Neuroleptics: ([x]) Not Applicable OR Document below three failed attempts at monotherapy, or a plan to taper to monotherapy, or augmentation of Clozapine. () Discharge Diet Regular Discharge Activity Normal DC Disposition: Returning to home and family. Referrals Ordered Referrals Intensive Outpt Psy-Substance 12/03/17 [address] [id number] Intensive Outpatient Psych-substance [facility] Intake 12/03/17 11:30am [address] [id number] Prescriptions Start taking the following new medications: Olanzapine (Olanzapine) 10 MG TABLET 1 Tablet ORAL AT BEDTIME Qty = 14 No Refills Comments: Last Taken:12/02/17 Time:10pm Multivitamin (One Daily Multivitamin) 1 EACH TABLET 1 Tablet ORAL DAILY Qty = 14 No Refills Comments: Last Taken:12/03/17 Time:9am Divalproex Sodium (Divalproex Sodium) 250 MG TABLET.DR 1 Tablet ORAL SEE INSTRUCTIONS Qty = 70 No Refills Instructions: Take 2 tabs (500 mg) q 8am and take 3 tabs (750 mg) po q 8pm. Comments: Last Taken:12/03/17 Time:9am Other Inst/Recommendations Stay away from marijuana. Take medications and have VPA level checked Studies Pending at Discharge None. Copies To: Intensive Outpt Psy-Substance
== END 2017-12-03 11:18 | DRG 885 ==
LOC: ERH 15:51 → CP SOUTH 11-23 10:25 → ERHI 11-23 10:25 → ENTRNSPT 11-23 15:52 → EDTRNSPT 11-23 15:56 → EDTRNSPTSTS 11-23 15:56 → CP SOUTH 11-23 16:16 → CMPTRNSPT 11-23 16:18 → CP SOUTH 11-27 12:24
PROVIDERS: Emergency Medicine; Internal Medicine
DX: F31.9 Bipolar disorder, unspecified (principal); F12.90 Cannabis use, unspecified, uncomplicated
CPT/HCPCS: 36415; 80307; 81001; G0463; G0480